=== PATIENT | female | born 1955 | race Caucasian/White ===

== ENCOUNTER → 2018-12-05 16:11 | Emergency (ER) | payer BC ==
--- NOTE | 2018-12-05 17:57 | ED ---
GI/ HPI - HPI Summary HPI Summary: Patient complains of possible blood in stool. Diagnosed yesterday at urgent care with diverticulitis and placed on Augmentin. Confirmed by CT. Patient states she feels much better today, has had no food today except rivero Jell-O but has had 4 bowel movements today containing the color bright red. Denies history of GI bleed, anti-coag. Denies any pain injury or other symptoms. Medical history is HTN, hypothyroid. - History of Current Complaint Chief Complaint: EDGIBleed Time Seen by Provider: 12/05/18 17:36 Stated Complaint: BLOOD IN STOOL Hx Obtained From: Patient Onset/Duration: Started Hours Ago Timing: Intermittent Current Severity: None Vaginal Bleeding Description: Bright Red Pain Intensity: 0 - Allergy/Home Medications Allergies/Adverse Reactions: Allergies Allergy/AdvReac Type Severity Reaction Status Date / Time Sulfa (Sulfonamide Allergy Rash Verified 12/05/18 16:28 Antibiotics) PMH/Surg Hx/FS Hx/Imm Hx Endocrine/Hematology History: Reports: Hx Thyroid Disease Denies: Hx Diabetes Cardiovascular History: Reports: Other Cardiovascular Problems/Disorders - Mitral valve prolapse Denies: Hx Hypertension Respiratory History: Denies: Hx Asthma, Hx Chronic Obstructive Pulmonary Disease (COPD) GI History: Denies: Hx Ulcer History: Denies: Hx Renal Disease Sensory History: Reports: 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 Opthamlomology History: Reports: 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 EENT History: Denies: Hx Deafness Neurological History: Denies: Hx Dementia Psychiatric History: Denies: Hx Autism - Cancer History Hx Chemotherapy: No Hx Radiation Therapy: No - Surgical History Surgery Procedure, Year, and Place: shoulder surgery 08/2010 Infectious Disease History: No Infectious Disease History: Denies: Hx Hepatitis, Hx Human Immunodeficiency Virus (HIV), History Other Infectious Disease, Traveled Outside the [place] in Last 30 Days - Family History Known Family History: Positive: Hypertension, Other - BRAIN ANEURYSM Negative: Cardiac Disease, Diabetes - Social History Alcohol Use: Weekly Alcohol Amount: 3-4 times a week Hx Substance Use: No Substance Use Type: Reports: None Hx Tobacco Use: No Smoking Status (MU): Never Smoked Tobacco Review of Systems Constitutional: Negative Eyes: Negative ENT: Negative Cardiovascular: Negative Respiratory: Negative Positive: Other Genitourinary: Negative Musculoskeletal: Negative Skin: Negative Neurological: Negative Psychological: Normal All Other Systems Reviewed And Are Negative: Yes Physical Exam Triage Information Reviewed: Yes Vital Signs On Initial Exam: Initial Vitals Temp Pulse Resp BP Pulse Ox 97.7 F 95 16 171/85 100 12/05/18 16:23 12/05/18 16:23 12/05/18 16:23 12/05/18 16:23 12/05/18 16:23 Vital Signs Reviewed: Yes Appearance: Positive: Well-Appearing Skin: Positive: Warm Head/Face: Positive: Normal Head/Face Inspection Eyes: Positive: Normal Neck: Positive: Supple Respiratory/Lung Sounds: Positive: Clear to Auscultation Cardiovascular: Positive: Normal Abdomen Description: Positive: Nontender Musculoskeletal: Positive: Normal Neurological: Positive: Normal Psychiatric: Positive: Normal AVPU Assessment: Alert - [place] Coma Scale Best Eye Response: 4 - Spontaneous Best Motor Response: 6 - Obeys Commands Best Verbal Response: 5 - Oriented Coma Scale Total: 15 Diagnostics - Vital Signs Vital Signs Temp Pulse Resp BP Pulse Ox 12/05/18 16:23 97.7 F 95 16 171/85 100 - Laboratory Result Diagrams: 12/05/18 18:03 Lab Statement: Any lab studies that have been ordered have been reviewed, and results considered in the medical decision making process. GIGU Course/Dx - Course Course Of Treatment: Patient complains of possible blood in stool. Diagnosed yesterday at urgent care with diverticulitis and placed on Augmentin. Confirmed by CT. Patient states she feels much better today, has had no food today except rivero Jell-O but has had 4 bowel movements today containing the color bright red. Denies history of GI bleed, anti-coag. Denies any pain injury or other symptoms. Medical history is HTN, hypothyroid. Physical exam unremarkable. Vital signs within normal limits. Labs unremarkable. Hemoglobin and hematocrit unremarkable. Hemoccult negative. - Diagnoses Provider Diagnoses: GI bleed Discharge - Sign-Out/Discharge Documenting (check all that apply): Patient Departure Patient Received Moderate/Deep Sedation with Procedure: No - Discharge Plan Condition: Stable Disposition: HOME Patient Education Materials: Rectal Bleeding (ED) Referrals: Lizabeth Duran MD [Primary Care Provider] - Additional Instructions: Follow-up with primary care. Return to the ED for any new or worsening symptoms. - Billing Disposition and Condition Condition: STABLE Disposition: Home
[2018-12-05 18:13] LABS: ABS Basophils 0 10^3/ul (0-0.2); ABS Eosinophils 0.1 10^3/ul (0-0.6); ABS Lymphocytes 1.9 10^3/ul (1.0-4.8); ABS Monocytes 0.8 10^3/ul (0-0.8); ABS Neutrophils 5.3 10^3/ul (1.5-7.7); ABS Nucleated RBC 0 10^3/ul; Hematocrit 37 % (35-47); Hemoglobin 12.4 g/dl (12.0-16.0); Lymphocyte % 23.6 %; Mean Corpuscular HGB Conc 34 g/dl (31-36); Mean Corpuscular Hemoglobin 30 pg (27-31); Mean Corpuscular Volume 88 fL (80-97); Mean Platelet Volume 7.8 fL (7.4-10.4); Nucleated Red Blood Cells % 0; Platelet Count 253 10^3/ul (150-450); Red Blood Count 4.14 10^6/ul (4.00-5.40); Red Cell Distribution Width 13 % (10.5-15); White Blood Count 8.2 10^3/ul (3.5-10.8)
[2018-12-05 18:19] LABS: INR 1.06 (0.77-1.02)
[2018-12-05 18:25] LABS: Albumin 4.2 g/dL (3.2-5.2); Albumin/Globulin Ratio 1.3 (1-3); C Reactive Protein 126.11 mg/L (<8.01); Calcium 9.4 mg/dL (8.6-10.3); EGFR African American 78.5 (>60); EGFR Non-African American 64.9 (>60); Globulin 3.2 g/dL (2-4); Potassium 4.4 mmol/L (3.5-5.0); Total Bilirubin 1.1 mg/dL (0.2-1.0); Total Protein 7.4 g/dL (6.4-8.9)
[2018-12-05 18:46] VITALS: BP 179/97
== END | disposition home or self-care (01) ==
LOC: ED 16:11
DX: K92.2 Gastrointestinal hemorrhage, unspecified (principal); E03.9 Hypothyroidism, unspecified; Z88.2 Allergy status to sulfonamides; I10 Essential (primary) hypertension
CPT/HCPCS: 36415; 80053; 82270; 85025; 85610; 86140; 99282

== ENCOUNTER 2019-12-25 22:27 | Emergency (ER) | payer BC ==
--- OUTSIDE RECORDS SUMMARY | 2019-12-25 22:46 | XMS REPORT | Summary of Care ---
:1955 Author Organization [facility] Address [address] [address] Care Team Providers Name Role Phone Lizabeth Duran MD Primary Care Provider Reason for Referral MRI/CAT/PET Scan (Routine) Status Reason Specialty Diagnoses / Referred By Referred To Procedures Contact Contact Pending Review Diagnoses Acute pain of left shoulder Casey Das MD Procedures MR UPPER EXTREMITY JOINT WO CONTRAST LEFT [address] [address] Reason for Visit Reason Comments New Patient Francy is here today for left shoulder pain. She feels she injured while lifting a mower deck at her job. Bothersome to sleep. Left hand dominant. Denies any left shoulder surgery, injections or physical therapy. Hx of RSRCR on 08/16/10 Refer to Department Only (Routine) Status Reason Specialty Diagnoses / Procedures Referred By Contact Referred To Contact Closed Orthopedics Diagnoses Arthralgia of shoulder, unspecified laterality Lizabeth Duran MD [address] [place] [address] Encounter Details Date Type Department Care Team Description 11/09/2019 Office Visit [facility] - Casey Das MD Acute pain of left [place] [address] shoulder (Primary Dx) [address] [facility] [place] [address] [address] [phone] [place] [address] [phone] Allergies Active Allergy Reactions Severity Noted Date Comments Sulfa Antibiotics 01/19/2008 documented as of this encounter (statuses as of 11/09/2019) Medications Medication Sig Dispensed Refills Start Date End Date Status diazepam (VALIUM) 2 MG Take 1 Tab by 20 Tab 0 08/18/2017 Active Oral TabIndications: mouth EVERY Vertigo BEDTIME NEEDED (vertigo). Max Daily Amount: 2 mg. diclofenac EC Take 75 mg by 60 Tab 1 08/18/2017 Active (VOLTAREN) 75 MG Oral mouth TWO Tab ECIndications: Back TIMES DAILY spasm NEEDED (pain). cyclobenzaprine Take 1 Tab by 30 Tab 1 08/18/2017 Active (FLEXERIL) 10 MG Oral mouth THREE TabIndications: Back TIMES DAILY pain with radiation NEEDED for muscle spasm. levothyroxine Take 1 Tab by 90 Tab 3 10/17/2019 Active (SYNTHROID) 88 MCG Oral mouth BEFORE TabIndications: BREAKFAST. Hypothyroidism, unspecified type ramipril (ALTACE) 10 MG Take 1 Cap by 90 Cap 3 10/17/2019 Active Oral CapIndications: mouth DAILY. Essential hypertension LORazepam (ATIVAN) 0.5 Take 1 Tab by 12.86 Each 0 11/09/2019 11/10/2019 Active MG Oral Tab mouth ONE TIME for 1 dose. Max Daily Amount: 0.5 mg. Once prior to MRI documented as of this encounter (statuses as of 11/09/2019) Active Problems Problem Noted Date Statin declined 10/17/2019 SVT (supraventricular tachycardia) 10/01/2018 S/P rotator cuff repair 02/15/2014 Biceps tendonitis 02/15/2014 Simple or unspecified chronic serous otitis media 10/31/2011 Essential hypertension 08/01/2010 Rotator cuff tear 06/12/2010 Tight posterior capsule of shoulder 11/28/2009 Left shoulder pain 2009 Hypothyroidism 01/12/2008 Chronic rhinitis 01/12/2008 Mixed hyperlipidemia 01/12/2008 Breast cyst 01/12/2008 Overview: RIGHT BREAST ASPIRATION-BENIGN documented as of this encounter (statuses as of 11/09/2019) Resolved Problems Problem Noted Date Resolved Date Lateral epicondylitis 01/19/2008 08/01/2010 Overview: Right. Mitral valve prolapse 01/12/2008 08/06/2016 Overview: Mild by echocardiogram 2005 documented as of this encounter (statuses as of 11/09/2019) Immunizations Name Administration Dates Next Due Influenza (IM) Preservative Free 07/14/2018, 07/18/2017, 07/18/2013, 07/22/2012, 07/24/2011, 08/01/2010 Influenza (IM) W/Pres 07/09/2019, 07/26/2014 Influenza Vaccine Split 07/13/2017 Influenza Vaccine Whole 07/24/2009, 08/17/2008, 08/18/2007 documented as of this encounter Social History Tobacco Use Types Packs/Day Years Used Date Never Smoker Smokeless Tobacco: Never Used Tobacco Cessation: Counseling Given: No Alcohol Use Drinks/Week oz/Week Comments Yes 6 Cans of beer 6.0 Physical Activity Answer Date Recorded On average, how many days per week do you engage in moderate 5 days 2019 to strenuous exercise (like walking fast, running, jogging, dancing, swimming, biking, or other activities that cause a light or heavy sweat)? On average, how many minutes do you engage in exercise at Not asked this level? Sex Assigned at Date Recorded Not on file Job Start Date Occupation Industry Not on file Not on file Not on file Travel History Travel Start Travel End No recent travel history available. documented as of this encounter Last Filed Vital Signs Vital Sign Reading Time Taken Comments Blood Pressure 130/82 11/09/2019 11:42 AM EST Pulse - - Temperature - - Respiratory Rate - - Oxygen Saturation - - Inhaled Oxygen Concentration - - Weight 74.4 kg (164 lb) 11/09/2019 11:42 AM EST Height 154.9 cm (5' 1") 11/09/2019 11:42 AM EST Body Mass Index 30.99 11/09/2019 11:42 AM EST documented in this encounter Progress Notes Casey Das MD - 11/09/2019 11:30 AM EST PATIENT: Francy Jiménez : 1955 DATE OF SERVICE: 11/09/2019 REFERRING PRACTITIONER: Lizabeth Duran PRIMARY CARE PROVIDER: Lizabeth Duran CHIEF COMPLAINT: Chief Complaint Patient presents with New Patient Francy is here today for left shoulder pain. She feels she injured while lifting a mower deck at her job. Bothersome to sleep. Left hand dominant. Denies any left shoulder surgery, injections or physical therapy. Hx of RSRCR on 08/16/10 HISTORY OF PRESENT ILLNESS: Francy Jiménez is a 64-y.o. female who returns for a follow up for left shoulder pain. PHYSICAL EXAM: Shoulder Exam General Skin: Intact Muscle Bulk: no gross atrophy noted Crepitus: minimal Neurovascular Sensation: axillary/median/ulnar/radial nerve Sensate to light touch Strength: biceps, triceps, wrist extension, wrist flexion, interossei 5/5 Vascular: Good pulse C-spine: Negative Range of motion Forward elevation: 140 Internal rotation: L5 External rotation: 30 Rotation 90 abduction: 0-90 Subscapularis Belly Press: negative Lift Off: negative Supraspinatus Supraspinatus strength testin/5 Infraspinatus/Teres Minor External rotation strength: 4/5 Hornblower: negative IMPRESSION: ICD-9-CM ICD-10-CM 1. Acute pain of left shoulder 719.41 M25.512 XR SHOULDER MIN 2 VIEWS LEFT ( STANDARD) MR UPPER EXTREMITY JOINT WO CONTRAST LEFT 2. Arthralgia of shoulder, unspecified laterality 719.41 M25.519 REFER TO ORTHOPEDICS PLAN: This patient has failed conservative care including activity modification, anti- inflammatory use andphysical therapy for more than 6 weeks. I would like approval for a left shoulder magnetic resonance imaging to rule out a rotator cuff tear or other shoulder pathology. Follow up after the study is completed. The patient should bring the disc as well as the report if it is done at an outside institution. Author: Casey Das MD 11/09/2019 13:24 documented in this encounter Plan of Treatment Date Type Specialty Care Team Description 11/21/2019 Ancillary Procedure Radiology 12/07/2019 Office Visit Orthopedics Olman Mendez [facility] [address] [address] [phone] Name Type Priority Associated Diagnoses Date/Time XR SHOULDER MIN 2 Imaging Routine Acute pain of left 11/09/2019 11:41 AM VIEWS LEFT (STANDARD) shoulder EST Name Type Priority Associated Diagnoses Order Schedule XR SHOULDER MIN 2 VIEWS Imaging Routine Acute pain of left Expected: 2019, LEFT (STANDARD) shoulder Expires: 11/07/2020 MR UPPER EXTREMITY Imaging Routine Acute pain of left Expected: 11/09/2019, JOINT WO CONTRAST LEFT shoulder Expires: 11/08/2020 Health Maintenance Due Date Last Done Comments DTaP/Tdap/Td Vaccines (1 - 1966 Tdap) ZOSTER IMMUNIZATION SERIES 2005 (1 of 2) Colonoscopy 11/26/2019 11/26/2009, 11/26/2009 PAP SMEAR 02/11/2020 02/10/2017, 11/15/2013, 05/08/2009 (Previously completed), Additional history exists MAMMOGRAM (SCREENING) 02/23/2020 02/22/2019, 02/10/2017, 02/10/2017, Additional history exists DIABETES SCREENING 09/26/2020 09/26/2019, 08/20/2018, 08/05/2017, Additional history exists LIPID DISORDER SCREENING 09/26/2020 09/26/2019, 08/20/2018, 08/05/2017, Additional history exists DEPRESSION SCREENING 10/17/2020 10/17/2019 INFLUENZA VACCINE Completed 07/09/2019, 07/14/2018, 07/18/2017, Additional history exists HEPATITIS A IMMUNIZATION Aged Out No longer eligible SERIES based on patient's age to complete this topic HPV IMMUNIZATION SERIES Aged Out No longer eligible based on patient's age to complete this topic MENINGOCOCCAL VACCINE IMM Aged Out No longer eligible based on patient's age to complete this topic PNEUMOCOCCAL 0-64 YRS Aged Out No longer eligible based on patient's age to complete this topic documented as of this encounter Goals Goal Patient Goal Associated Recent Patient-Stated? Author Type Problems Progress Blood Pressure Blood 130/82 No Renee, < 150/90 Pressure (11/09/2019 Lizabeth Ventura, 11:42 AM EST) Note: This is an individualized treatment (blood pressure) goal for Francy Jiménez: Displayed above (on the left) is your goal for blood pressure control. Your most recent blood pressure is also shown above, on the right. You should try to achieve blood pressures that are lower than your goal listed above (on the left). Weight loss vs. 18 Lifestyle 0.8 (11/09/2019 11:42 AM No Lizabeth Duran mo max (lbs) >= 10 EST) Note: This is an individualized lifestyle goal for Francy Jiménez: Your body mass index (BMI) is more than 30. You should lose weight. A reasonable starting goal is to lose 10 pounds. Displayed above is how many pounds you have lost thus far towards your 10 pound weight loss goal. Take all prescribed medications as Self-management No Lizabeth Duran MD directed Note: This is an individualized self-management goal for Francy Jiménez: Please take all prescribed medications as directed. 1. Do not skip doses. If you cannot afford your medications, talk with your doctor. 2. Use a pill reminder system such as a pill box if needed. Your pharmacist can help you with this. 3. Contact your Pharmacy 5 days before your medication runs out. If you cannot take your medications for any reasons, talk with your doctor. 4. Please bring all of your medication bottles and inhalers (or a list of all your medications/inhalers) with you to every visit. Potential barriers to meeting all of your care plan goals will continue to be addressed on an ongoing basis. documented as of this encounter Implants Implanted Type Area Paster Operator Device Shelf Model / Identifier Expiration Date Serial / Lot Corsidracrew [place] - [id number] Right: AR[employer]REX [id number] / Implanted: Qty: 1 on 08/16/2010 at [facility] Shoulder / [id number] Pushlock 3.5mm - [id number] Right: AR[employer]REX [id number] / Implanted: Qty: 2 on 08/16/2010 at [facility] Shoulder / [id number] documented as of this encounter Results Not on filedocumented in this encounter Visit Diagnoses Diagnosis Acute pain of left shoulder documented in this encounter Insurance Payer Benefit Plan / Subscriber ID Effective Dates Phone Address Type Group [employer] xxxxxxxxxxxx Effective for all Watchfinder Guarantor Name Account Type Relation to Date of Phone Billing Patient Address Francy Jiménez Personal/Family [address] (Home) [place], [place] [phone] [id number] (Work) documented as of this encounter
[2019-12-26] MEDS ORDERED: Ondansetron INJ* 2 MG/ML VIAL IV ONE (00:06)
[2019-12-26] MEDS ORDERED: Ketorolac INJ* 30 MG/ML 1 ML VIAL IV PUSH ONE (00:06)
[2019-12-26] MEDS ORDERED: NS 0.9% 1000 ML** 1,000 ML IV ONE (00:06)
[2019-12-26 00:12] LABS: Hematocrit 41 % (35-47); Hemoglobin 13.6 g/dL (12.0-16.0); Mean Corpuscular HGB Conc 34 g/dL (31-36); Mean Corpuscular Hemoglobin 30 pg (27-31); Mean Corpuscular Volume 89 fL (80-97); Red Blood Count 4.55 10^6 /uL (3.70-4.87); Red Cell Distribution Width 13 % (10-15)
[2019-12-26 00:16] LABS: ALT 23 U/L (7-52); Albumin 4.2 g/dL (3.2-5.2); Albumin/Globulin Ratio 1.2 (1-3); Alkaline Phosphatase 75 U/L (34-104); BUN/Creatinine Ratio 22.9 (8-20); Blood Urea Nitrogen 22 mg/dL (6-24); CO2 Carbon Dioxide 20 mmol/L (22-32); Calcium 9.4 mg/dL (8.6-10.3); Chloride 104 mmol/L (101-111); EGFR African American 70.8 (>60); EGFR Non-African American 58.5 (>60); Globulin 3.4 g/dL (2-4); Glucose 111 mg/dL (70-100); Sodium 135 mmol/L (135-145); Total Protein 7.6 g/dL (6.4-8.9)
[2019-12-26 00:31] LABS: Anion Gap 11 mmol/L (2-11)
[2019-12-26 00:36] LABS: White Blood Count 14.1 10^3/uL (3.5-10.8)
[2019-12-26 00:37] LABS: ABS Basophils 0.1 10^3/ul (0-0.2); ABS Eosinophils 0.2 10^3/ul (0-0.6); ABS Lymphocytes 2.2 10^3/ul (1.0-4.8); ABS Neutrophils 10.6 10^3/ul (1.5-7.7); Eosinophil % 1.2 %; Lymphocyte % 15.6 %; Mean Platelet Volume 8.4 fL (7.4-10.4); Nucleated Red Blood Cells % 0.2; Platelet Count 226 10^3/uL (150-450)
[2019-12-26 00:46] LABS: Urine Appearance Clear; Urine Bilirubin Negative (Negative); Urine Blood 1+ (Negative); Urine Color Yellow; Urine Glucose Negative (Negative); Urine Ketones Trace (Negative); Urine Nitrite Negative (Negative); Urine Protein Negative (Negative); Urine Specific Gravity 1.021 (1.010-1.030); Urine Urobilinogen Negative (Negative)
[2019-12-26 00:53] LABS: Urine Bacteria Absent (Absent); Urine Red Blood Cell Trace(0-2/hpf) (Absent); Urine White Blood Cell Trace(0-5/hpf) (Absent)
[2019-12-26 01:22] LABS: Potassium Redraw 3.9 mmol/L (3.5-5.0)
[2019-12-26] MEDS ORDERED: Iodixanol* (CONTRAST) 320 MG/ML 100 ML SDV IV ONE (02:10)
--- NOTE | 2019-12-26 03:28 | ED ---
Abdominal Pain/Female - HPI Summary HPI Summary: Patient is a 64 y/o F presenting to [facility] with complaints of lower abdominal pain, diarrhea, and urgency of bowel movements. She states that she has been experiencing intermittent LLQ pain since 12/22/19. Patient notes that she had an episode of diarrhea on 12/22/19 as well. On 12/23/19, she states that she lifted a heavy case of water, which aggravated her LLQ pain. She states that since yesterday, 12/24/19, she has been experiencing a more generalized discomfort at her lower abdomen. Patient states that she has felt an urgency to have a bowel movement but was not actually been able to do so at the time. She was able to have a bowel movement in the morning, which provided some relief to her Sx. However, at around 1700 12/25/19, she states that she experienced onset of a significant lower abdominal discomfort. Patient denies fever, vomiting, and urinary Sx. Some nausea is noted. Patient notes PMHx of HTN and thyroid disease. She reports a Sulfa allergy. Right shoulder surgery is noted, no abdominal surgeries reported. Occasional alcohol usage noted, no tobacco or other substance usage reported. FMHx of diverticulitis noted. Home medications and allergies are reviewed. - History of Current Complaint Chief Complaint: EDAbdPain Stated Complaint: ABD PAIN PER PT Time Seen by Provider: 12/26/19 01:33 Hx Obtained From: Patient Onset/Duration: Lasting Days Timing: Days Pain Intensity: 5 Pain Scale Used: 0-10 Numeric Location: Other - lower abdomen Aggravating Factor(s): Other: - lifting Alleviating Factor(s): Bowel Movement Associated Signs and Symptoms: Positive: Nausea, Diarrhea, Other: - urgency of bowel movement. Negative: Fever, Urinary Symptoms, Vomiting Allergies/Adverse Reactions: Allergies Allergy/AdvReac Type Severity Reaction Status Date / Time Sulfa (Sulfonamide Allergy Rash Verified 12/25/19 22:29 Antibiotics) Home Medications: Home Medications Levothyroxine TAB* [Synthroid 75 MCG TAB*] 88 mcg PO 0800 06/10/15 [History Confirmed 12/26/19] diazePAM [Valium] 2 mg PO .BID PRN 06/10/15 [History Confirmed 12/26/19] Ramipril [Altace] 10 mg PO DAILY 12/04/18 [History Confirmed 12/26/19] Amoxicillin/Clavulanate TAB* [Augmentin TAB 875*] 875 mg PO BID #28 tab [Rx] PMH/Surg Hx/FS Hx/Imm Hx Endocrine/Hematology History: Reports: Hx Thyroid Disease Denies: Hx Diabetes Cardiovascular History: Reports: Other Cardiovascular Problems/Disorders - Mitral valve prolapse Denies: Hx Hypertension Respiratory History: Denies: Hx Asthma, Hx Chronic Obstructive Pulmonary Disease (COPD) GI History: Denies: Hx Ulcer History: Denies: Hx Dialysis, Hx Renal Disease Sensory History: Reports: 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 Denies: Hx Deafness Opthamlomology History: Reports: 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 Neurological History: Denies: Hx Dementia Psychiatric History: Denies: Hx Autism - Cancer History Hx Chemotherapy: No Hx Radiation Therapy: No - Surgical History Surgery Procedure, Year, and Place: shoulder surgery 08/2010 Infectious Disease History: No Infectious Disease History: Denies: Hx Hepatitis, Hx Human Immunodeficiency Virus (HIV), History Other Infectious Disease, Traveled Outside the [place] in Last 30 Days - Family History Known Family History: Positive: Hypertension, Other - BRAIN ANEURYSM Negative: Cardiac Disease, Diabetes - Social History Alcohol Use: Weekly Alcohol Amount: 3-4 times a week Hx Substance Use: No Substance Use Type: Reports: None Hx Tobacco Use: No Smoking Status (MU): Never Smoked Tobacco - Additional Comments History Additional Comments: Patient reports: PMHx of HTN and thyroid disease PSHx of right shoulder surgery FMHx of diverticulitis Review of Systems - ROS Summary Review of Systems Summary: Home Medications Medication Instructions Recorded Confirmed Type Levothyroxine TAB* [Synthroid 75 88 mcg PO 0800 06/10/15 12/26/19 History MCG TAB*] diazePAM [Valium] 2 mg PO .BID PRN 06/10/15 12/26/19 History Ramipril [Altace] 10 mg PO DAILY 12/04/18 12/26/19 History Amoxicillin/Clavulanate TAB* 875 mg PO BID #28 tab 12/26/19 Rx [Augmentin TAB 875*] Negative: Fever Positive: Abdominal Pain, Diarrhea, Nausea. Negative: Vomiting Positive: urgency - of bowel movements , other - negative - urinary Sx All Other Systems Reviewed And Are Negative: Yes Physical Exam - Summary Physical Exam Summary: General: Well-developed, Obese female. No acute distress. HEENT: Normocephalic, Atraumatic. Eyes: Conjuctiva normal, PERRL. Oropharynx: Clear, mucous membranes moist, (-) exudates. Neck: Soft, FROM, (-) lymphadenopathy, (-) thyromegaly, (-) JVD. Cardiovascular: Normal sinus rhythm, (-) murmur. Lungs: Clear to auscultation bilaterally (-) wheezes, (-) rales, (-) rhonchi. Abdomen: Soft, moderate LLQ tenderness, non-distended, (-) organomegaly, normal bowel sounds. Back: (-) CVA tenderness Extremities: No edema. Skin: Warm, dry, (-) rash. Neuro: Alert and oriented x3, moves all extremities equally. No ataxia. No gait disturbance. No sensory deficit. Normal strength, normal sensation. Psychiatric: Mood normal, affect normal. Triage Information Reviewed: Yes Vital Signs On Initial Exam: Initial Vitals Temp Pulse Resp BP Pulse Ox 96.2 F 110 18 171/101 98 12/25/19 22:29 12/25/19 22:29 12/25/19 22:29 12/25/19 22:29 12/25/19 22:29 Vital Signs Reviewed: Yes Procedures - Sedation Patient Received Moderate/Deep Sedation with Procedure: No Diagnostics - Vital Signs Vital Signs Temp Pulse Resp BP Pulse Ox 12/26/19 03:02 101 157/83 98 12/26/19 03:00 101 100 12/26/19 02:01 100 180/89 98 12/26/19 02:00 104 99 12/26/19 01:31 94 164/83 99 12/26/19 01:01 97 172/87 100 12/26/19 01:00 98 100 12/26/19 00:33 104 100 12/26/19 00:32 101 195/102 100 12/25/19 22:29 96.2 F 110 18 171/101 98 - Laboratory Lab Results: Lab Results 12/25/19 12/25/19 12/25/19 Range/Units 23:49 23:49 23:49 WBC 14.1 H (3.5-10.8) 10^3/uL RBC 4.55 (3.70-4.87) 10^6 /uL Hgb 13.6 (12.0-16.0) g/dL Hct 41 (35-47) % MCV 89 (80-97) fL MCH 30 (27-31) pg MCHC 34 (31-36) g/dL RDW 13 (10-15) % Plt Count 226 (150-450) 10^3/uL MPV 8.4 (7.4-10.4) fL Neut % (Auto) 75.2 % Lymph % (Auto) 15.6 % [place] % (Auto) 7.4 % Eos % (Auto) 1.2 % Baso % (Auto) 0.6 % Absolute Neuts (auto) 10.6 H (1.5-7.7) 10^3/ul Absolute Lymphs (auto) 2.2 (1.0-4.8) 10^3/ul Absolute Monos (auto) 1.0 H (0-0.8) 10^3/ul Absolute Eos (auto) 0.2 (0-0.6) 10^3/ul Absolute Basos (auto) 0.1 (0-0.2) 10^3/ul Absolute Nucleated RBC 0.0 10^3/ul Neutrophils % 76.0 % Lymphocytes % 16.0 % Monocytes % 7.0 % Eosinophils % 1.0 % Nucleated RBC % 0.2 Normal RBC Morphology Normal (Normal) Sodium 135 (135-145) mmol/L Potassium TNP Chloride 104 (101-111) mmol/L Carbon Dioxide 20 L (22-32) mmol/L Anion Gap 11 (2-11) mmol/L BUN 22 (6-24) mg/dL Creatinine 0.96 H (0.51-0.95) mg/dL Est GFR ( Amer) 70.8 (>60) Est GFR (Non-Af Amer) 58.5 (>60) BUN/Creatinine Ratio 22.9 H (8-20) Glucose 111 H (70-100) mg/dL Lactic Acid 0.5 (0.5-2.0) mmol/L Calcium 9.4 (8.6-10.3) mg/dL Total Bilirubin 0.60 (0.2-1.0) mg/dL AST TNP ALT 23 (7-52) U/L Alkaline Phosphatase 75 (34-104) U/L C-Reactive Protein 21.90 H (<8.01) mg/L Total Protein 7.6 (6.4-8.9) g/dL Albumin 4.2 (3.2-5.2) g/dL Globulin 3.4 (2-4) g/dL Albumin/Globulin Ratio 1.2 (1-3) Lipase 29 (11.0-82.0) U/L Urine Color Urine Appearance Urine pH (5-9) Ur Specific [place] (1.010-1.030) Urine Protein (Negative) Urine Ketones (Negative) Urine Blood (Negative) Urine Nitrate (Negative) Urine Bilirubin (Negative) Urine Urobilinogen (Negative) Ur Leukocyte Esterase (Negative) Urine WBC (Auto) (Absent) Urine RBC (Auto) (Absent) Urine Bacteria (Absent) Urine Glucose (Negative) 12/26/19 12/26/19 Range/Units 00:23 01:01 WBC (3.5-10.8) 10^3/uL RBC (3.70-4.87) 10^6 /uL Hgb (12.0-16.0) g/dL Hct (35-47) % MCV (80-97) fL MCH (27-31) pg MCHC (31-36) g/dL RDW (10-15) % Plt Count (150-450) 10^3/uL MPV (7.4-10.4) fL Neut % (Auto) % Lymph % (Auto) % [place] % (Auto) % Eos % (Auto) % Baso % (Auto) % Absolute Neuts (auto) (1.5-7.7) 10^3/ul Absolute Lymphs (auto) (1.0-4.8) 10^3/ul Absolute Monos (auto) (0-0.8) 10^3/ul Absolute Eos (auto) (0-0.6) 10^3/ul Absolute Basos (auto) (0-0.2) 10^3/ul Absolute Nucleated RBC 10^3/ul Neutrophils % % Lymphocytes % % Monocytes % % Eosinophils % % Nucleated RBC % Normal RBC Morphology (Normal) Sodium (135-145) mmol/L Potassium 3.9 Chloride (101-111) mmol/L Carbon Dioxide (22-32) mmol/L Anion Gap (2-11) mmol/L BUN (6-24) mg/dL Creatinine (0.51-0.95) mg/dL Est GFR ( Amer) (>60) Est GFR (Non-Af Amer) (>60) BUN/Creatinine Ratio (8-20) Glucose (70-100) mg/dL Lactic Acid (0.5-2.0) mmol/L Calcium (8.6-10.3) mg/dL Total Bilirubin (0.2-1.0) mg/dL AST 16 ALT (7-52) U/L Alkaline Phosphatase (34-104) U/L C-Reactive Protein (<8.01) mg/L Total Protein (6.4-8.9) g/dL Albumin (3.2-5.2) g/dL Globulin (2-4) g/dL Albumin/Globulin Ratio (1-3) Lipase (11.0-82.0) U/L Urine Color Yellow Urine Appearance Clear Urine pH 5.0 (5-9) Ur Specific [place] 1.021 (1.010-1.030) Urine Protein Negative (Negative) Urine Ketones Trace A (Negative) Urine Blood 1+ A (Negative) Urine Nitrate Negative (Negative) Urine Bilirubin Negative (Negative) Urine Urobilinogen Negative (Negative) Ur Leukocyte Esterase Negative (Negative) Urine WBC (Auto) Trace(0-5/hpf) (Absent) Urine RBC (Auto) Trace(0-2/hpf) (Absent) Urine Bacteria Absent (Absent) Urine Glucose Negative (Negative) Result Diagrams: 12/25/19 23:49 12/26/19 01:01 Lab Statement: Any lab studies that have been ordered have been reviewed, and results considered in the medical decision making process. - CT CT ABD/PEL CT Interpretation Completed By: Radiologist Summary of CT Findings: IMPRESSION: Acute diverticulitis. Inflammatory changes adjacent to the sigmoid colon which. has diverticular changes. These findings are consistent with acute. diverticulitis. No evidence of perforation. No associated abscess. No bowel. obstruction. THIS REPORT WAS REVIEWED BY ED PHYSICIAN. Abdominal Pain Fem Course/Dx - Course Course Of Treatment: 64-year-old female presents from home with left lower quadrant abdominal pain. She states she does have a history of diverticulosis. Had an episode of diverticulitis about a year ago. Has been having this pain for 2-3 days. Has worsened. It feels like she needs to have a bowel movement but is unable to. Has nausea no vomiting. Patient is afebrile. Left lower quadrant tenderness to palpation. Workup demonstrates elevated white count. CAT scan demonstrates diverticulitis. No perforation or abscess. Patient's pain improved with Toradol. Given IV fluids. Tolerated Augmentin. Discharged home on Augmentin and clear liquid diet. Follow up with PCP. Follow-up sooner if any worsening symptoms. During ED course, patient received fluids, Zofran 4 mg IV, Toradol 15 mg IV, Augmentin 875 mg PO. - Diagnoses Provider Diagnoses: Acute diverticulitis Discharge ED - Sign-Out/Discharge Documenting (check all that apply): Patient Departure - discharge - Discharge Plan Condition: Stable Disposition: HOME Prescriptions: Amoxicillin/Clavulanate TAB* [Augmentin TAB 875*] 875 mg PO BID #28 tab Patient Education Materials: Diverticulitis (ED) Referrals: Lizabeth Duran MD [Primary Care Provider] - 3 Days Additional Instructions: PLEASE RETURN TO ED FOR ANY NEW OR WORSENING SYMPTOMS. PLEASE FOLLOW-UP WITH YOUR PRIMARY CARE PHYSICIAN WITHIN THREE DAYS. - Billing Disposition and Condition Condition: STABLE Disposition: Home - Attestation Statements Document Initiated by Harriet: Yes Documenting Scribe: LEILA HAN Provider For Whom Harriet is Documenting (Include Credential): FABIEN ROBERTSON MD Scribe Attestation: LEILA Stout, scribed for FABIEN ROBERTSON MD on 12/26/19 at 0604. Scribe Documentation Reviewed: Yes Provider Attestation: The documentation as recorded by the LEILA costa accurately reflects the service I personally performed and the decisions made by me, FABIEN ROBERTSON MD Status of Scribe Document: Viewed
[2019-12-26] MEDS ORDERED: Amoxicillin/Clavulanate TAB* 875 MG PO ONE (03:29)
[2019-12-26 03:44] VITALS: BP 152/82
== END 2019-12-26 03:43 | disposition home or self-care (01) ==
LOC: ED 22:27
DX: K57.92 Diverticulitis of intestine, part unspecified, without perforation or abscess without bleeding (principal); R10.30 Lower abdominal pain, unspecified; R19.7 Diarrhea, unspecified; I10 Essential (primary) hypertension; E03.9 Hypothyroidism, unspecified; Z88.2 Allergy status to sulfonamides; Z79.899 Other long term (current) drug therapy; Z79.890 Hormone replacement therapy
CPT/HCPCS: 36415; 74177; 80053; 81003; 81015; 83605; 83690; 85025; 86140; 87086; 96374; 96375; 99283; A9270-GY; J1885; J2405; Q9967